=== PATIENT | male | born 1945 | race Caucasian/White ===

== ENCOUNTER 2017-05-01 09:21 | Emergency (ER) | payer OTHER, MEDICARE ==
[~2017-05-01] VITALS: Ht 182.9 cm; Wt 87.6 kg
[~2017-05-01 09:21] MED LIST: ASPIRIN325 MG PO; BENEMID500 MG PO; CATAPRES0.1 MG PO; LOPRESSOR50 MG PO; NORVASC5 MG PO; TRICOR145 MG PO; ZOCOR40 MG PO; ZYLOPRIM100 MG PO
[2017-05-01 11:24] VITALS: BP 142/77
== END 2017-05-01 11:25 | disposition home or self-care (01) ==
LOC: EME 09:21
PROC: 0T9B70Z Drainage of Bladder with Drainage Device, Via Natural or Artificial Opening (ICD-10-PCS; principal; 2017-05-01)
DX: R33.9 Retention of urine, unspecified (principal); A60.00 Herpesviral infection of urogenital system, unspecified; E78.5 Hyperlipidemia, unspecified; I10 Essential (primary) hypertension; Z87.440 Personal history of urinary (tract) infections; Z79.82 Long term (current) use of aspirin; Z87.891 Personal history of nicotine dependence
CPT/HCPCS: 99281; 99284

== ENCOUNTER 2017-11-02 05:56 | Emergency (ER) | payer OTHER, MEDICARE ==
[~2017-11-02] VITALS: Ht 182.9 cm; Wt 90.0 kg
[~2017-11-02 05:56] MED LIST changes: -TRICOR145 MG PO; +TRICOR48 MG PO; -ZYLOPRIM100 MG PO; +ZYLOPRIM300 MG PO
[2017-11-02 06:24] LABS: APPEARANCE CLEAR ((CLEAR)); BILIRUBIN NEGATIVE; BLOOD NEGATIVE; COLOR YELLOW ((YELLOW)); GLUCOSE (STRIP) NEGATIVE; KETONES NEGATIVE; LEUKOCYTES NEGATIVE; NITRITE NEGATIVE; PROTEIN (STRIP) NEGATIVE; SPECIFIC GRAVITY 1.015 (1.000-1.030); UCUL ADDED? NO; UROBILINOGEN 0.2 MG/DL (0.2-1.0)
[2017-11-02 07:19] LABS: HEMATOCRIT 42.8 % (38.0-50.0); HEMOGLOBIN 14.6 G/DL (12.5-16.6); MCH 31.3 PG (29.0-34.0); MCHC 34.1 G/DL (30.0-36.0); MCV 91.6 FL (86-99); PLATELET COUNT 215 K/uL (156-360); RBC DIS.WIDTH-CV 13.5 % (11.8-14.6); RBC DIS.WIDTH-SD 45.4 % (39-53); RED BLOOD COUNT 4.67 M/uL (4.00-5.50); WHITE BLOOD COUNT 10.4 K/uL (4.1-10.2)
[2017-11-02 08:04] LABS: ALBUMIN 4.1 G/DL (3.2-4.8); ALKALINE PHOSPHATASE 30 IU/L (3-129); ALT (GPT) 11 IU/L (3-49); AST (GOT) 17 IU/L (2-34); CHLORIDE 111 MEQ/L (99-109); CREATININE 1.9 MG/DL (0.6-1.3); GFR ESTIMATE (CALCULATED) 37 mL/min/ (58.99-99999); GLUCOSE 128 mg/dL (70-99); LIPASE 12 U/L (1.0-51.0); POTASSIUM 4.6 MEQ/L (3.7-5.4); SODIUM 147 MEQ/L (136-147); TOTAL BILIRUBIN 0.4 MG/DL (0.0-1.0); TOTAL PROTEIN 6.9 G/DL (6.4-8.3); TROP-I INTERPRETATION NEGATIVE; TROPONIN-I 0.03 ng/mL (0.0-0.30); UREA NITROGEN (BUN) 25 mg/dL (9-23)
[2017-11-02] MEDS ORDERED: VALTREX50 MG/ML PO (10:52)
[2017-11-02] MEDS ORDERED: CO Q-10200 MG PO (10:52)
[2017-11-02] MEDS ORDERED: VALIUM5 MG PO (10:53)
[2017-11-02] MEDS ORDERED: CARDURA4 MG PO (10:53)
[2017-11-02] MEDS ORDERED: FLEXI JOINT TA1 EACH PO (10:54)
[2017-11-02] MEDS ORDERED: XARELTO15 MG PO (10:55)
[2017-11-02] MEDS ORDERED: PROSCAR5 MG PO (10:55)
[2017-11-02] MEDS ORDERED: ZANTAC150 MG PO (10:55)
[2017-11-02] MEDS ORDERED: PERCOCET 5/31 TABLET PO (13:03)
[2017-11-02] MEDS ORDERED: ZOFRAN4 MG PO (13:03)
[2017-11-02 13:26] VITALS: BP 154/76
== END 2017-11-02 13:27 | disposition home or self-care (01) ==
LOC: EME 05:56
PROVIDERS: Emergency Medicine
DX: K80.10 Calculus of gallbladder with chronic cholecystitis without obstruction (principal); I48.91 Unspecified atrial fibrillation; E78.00 Pure hypercholesterolemia, unspecified; I10 Essential (primary) hypertension; M10.9 Gout, unspecified; Z79.01 Long term (current) use of anticoagulants; Z79.82 Long term (current) use of aspirin; Z87.891 Personal history of nicotine dependence; Z85.9 Personal history of malignant neoplasm, unspecified; Z87.440 Personal history of urinary (tract) infections
CPT/HCPCS: 71045; 76705; 80053; 81003; 83690; 84484; 85027; 93005; 99281; 99285; J2405; J3010

== ENCOUNTER 2017-11-07 09:23 | Day surgery (SDC) | payer OTHER, MEDICARE ==
[~2017-11-07] VITALS: Ht 182.9 cm; Wt 86.0 kg
[~2017-11-07 09:23] MED LIST changes: +CARDURA4 MG PO; +CO Q-10200 MG PO; +FLEXI JOINT TA1 EACH PO; +PERCOCET 5/31 TABLET PO; +PROSCAR5 MG PO; +VALIUM5 MG PO; +VALTREX50 MG/ML PO; +XARELTO15 MG PO; +ZANTAC150 MG PO; +ZOFRAN4 MG PO
[2017-11-07 09:50] VITALS: BP 136/66
[2017-11-07] MEDS ORDERED: NORCO 5/3251 TABLET PO (12:22)
[2017-11-07 15:00] VITALS: BP 153/74
[2017-11-07 16:14] VITALS: BP 168/80
[2017-11-07 18:10] VITALS: BP 165/78
== END 2017-11-07 18:17 | disposition home or self-care (01) ==
LOC: SDC 09:23
PROC: 0FT44ZZ Resection of Gallbladder, Percutaneous Endoscopic Approach (ICD-10-PCS; principal; 2017-11-07)
DX: K80.10 Calculus of gallbladder with chronic cholecystitis without obstruction (principal); I10 Essential (primary) hypertension; I48.91 Unspecified atrial fibrillation; Z79.01 Long term (current) use of anticoagulants; E78.5 Hyperlipidemia, unspecified; Z87.891 Personal history of nicotine dependence; N28.9 Disorder of kidney and ureter, unspecified
CPT/HCPCS: 88304; J0131; J1170; J2250; J2405; J2710; J3010; J7643; S0074

== ENCOUNTER 2018-03-06 16:23 | Emergency (ER) | payer OTHER, MEDICARE ==
[~2018-03-06] VITALS: Ht 182.9 cm; Wt 86.7 kg
[~2018-03-06 16:23] MED LIST changes: +NORCO 5/3251 TABLET PO
[2018-03-06 18:34] VITALS: BP 160/84
== END 2018-03-06 18:34 | disposition home or self-care (01) ==
LOC: EME 16:23
DX: S60.212A Contusion of left wrist, initial encounter (principal); W50.2XXA Accidental twist by another person, initial encounter; R60.0 Localized edema; I10 Essential (primary) hypertension; Z79.01 Long term (current) use of anticoagulants; Z87.891 Personal history of nicotine dependence
CPT/HCPCS: 73110; 93971; 99281; 99283